=== PATIENT | female | born 1970 | race Caucasian/White ===

== ENCOUNTER 2017-05-23 13:12 | Emergency (ER) | payer OTHER ==
[~2017-05-23] VITALS: Ht 165.1 cm; Wt 79.4 kg
[~2017-05-23 13:12] MED LIST: AMLODIPINE10 M1 PO; HYDRALAZINE HYD10 M1 PO; HYDROCHLOROTHIA25 MG PO; LANTUS100 U/ML SC; LEVOTHYROXINE0.1 M2 PO
[2017-05-23 13:20] VITALS: Ht 165.1 cm; Wt 79.4 kg
[2017-05-23 15:27] VITALS: BP 150/68
== END 2017-05-23 15:27 | disposition home or self-care (01) ==
LOC: ED 13:12
DX: J02.9 Acute pharyngitis, unspecified (principal); I10 Essential (primary) hypertension; E11.9 Type 2 diabetes mellitus without complications

== ENCOUNTER 2017-05-26 18:02 | Emergency (ER) | payer OTHER ==
[~2017-05-26] VITALS: Ht 165.1 cm; Wt 81.6 kg
[2017-05-26 18:13] VITALS: Ht 165.1 cm; Wt 81.6 kg
[2017-05-26 20:08] LABS: microscopic required? NO
[2017-05-26 20:14] VITALS: BP 129/86
[2017-05-26 20:22] LABS: urine erythrocyte NEGATIVE (NEGATIVE)
== END 2017-05-26 20:14 | disposition home or self-care (01) ==
LOC: ED 18:02
PROVIDERS: Emergency Medicine
DX: N34.2 Other urethritis (principal); I10 Essential (primary) hypertension; E11.9 Type 2 diabetes mellitus without complications; E07.9 Disorder of thyroid, unspecified; Z98.890 Other specified postprocedural states
CPT/HCPCS: 87491; 87591

== ENCOUNTER 2017-10-04 15:49 | Emergency (ER) | payer OTHER ==
[~2017-10-04] VITALS: Ht 165.1 cm; Wt 81.2 kg
[2017-10-04 15:53] VITALS: Ht 165.1 cm; Wt 81.2 kg
[2017-10-04 17:48] VITALS: BP 143/82
== END 2017-10-04 17:42 | disposition home or self-care (01) ==
LOC: ED 15:49
DX: M54.12 Radiculopathy, cervical region (principal); I10 Essential (primary) hypertension; E11.9 Type 2 diabetes mellitus without complications

== ENCOUNTER 2018-11-21 11:09 | Emergency (ER) | payer OTHER ==
[~2018-11-21] VITALS: Ht 165.1 cm; Wt 81.6 kg
[2018-11-21 11:11] VITALS: BP 124/68; Ht 165.1 cm; Wt 81.6 kg
== END 2018-11-21 12:26 | disposition home or self-care (01) ==
LOC: ED 11:09
DX: S76.911A Strain of unspecified muscles, fascia and tendons at thigh level, right thigh, initial encounter (principal); I10 Essential (primary) hypertension; E11.9 Type 2 diabetes mellitus without complications; Z98.890 Other specified postprocedural states; W22.8XXA Striking against or struck by other objects, initial encounter; Y93.89 Activity, other specified; Y92.89 Other specified places as the place of occurrence of the external cause; Y99.8 Other external cause status
CPT/HCPCS: Q0092

== ENCOUNTER 2019-02-27 23:25 | Emergency (ER) | payer OTHER ==
[~2019-02-27] VITALS: Ht 165.1 cm; Wt 81.6 kg
[2019-02-27 23:29] VITALS: Ht 165.1 cm; Wt 81.6 kg
[2019-02-28 00:41] VITALS: BP 163/91
== END 2019-02-28 00:41 | disposition home or self-care (01) ==
LOC: ED 23:25
DX: S16.1XXA Strain of muscle, fascia and tendon at neck level, initial encounter (principal); S80.11XA Contusion of right lower leg, initial encounter; M25.511 Pain in right shoulder; I10 Essential (primary) hypertension; E11.9 Type 2 diabetes mellitus without complications; V43.52XA Car driver injured in collision with other type car in traffic accident, initial encounter; Y93.I9 Activity, other involving external motion; Y92.488 Other paved roadways as the place of occurrence of the external cause; Y99.8 Other external cause status

== ENCOUNTER 2019-07-05 09:26 | Inpatient (IN) | payer OTHER ==
[~2019-07-05] VITALS: Ht 165.1 cm; Wt 81.0 kg
[2019-07-05 09:39] VITALS: Ht 165.1 cm; Wt 81.0 kg
[2019-07-05 10:46] LABS: CALCIUM 9.9 mg/dL (8.5-10.1); CARBON DIOXIDE 32.2 mmol/L (21-32); CHLORIDE SERUM 100 mmol/L (98-107); CREATININE SERUM 0.9 mg/dL (0.6-1.0); GFR1 > 60 mL/min; GLUCOSE SERUM 221 mg/dL (74-106); POTASSIUM SERUM 3.2 mmol/L (3.5-5.1); SODIUM SERUM 143 mmol/L (136-145)
[2019-07-05 10:51] LABS: ALBUMIN 3.9 g/dL (3.4-5.0); ALKALINE PHOSPHATASE 93 U/L (46-116); ALT/SGPT 25 U/L (14-59); AMYLASE 66 U/L (25-115); AST/SGOT 20 U/L (15-37); LIPASE 125 IU/L (73-393)
[2019-07-05 10:52] LABS: TOTAL PROTEIN, SERUM 8.5 g/dL (6.4-8.2)
[2019-07-05 11:32] LABS: BASOPHIL % 0.2 % (0-2); PLATELET COUNT 366 x10^3mcL (130-400); RED CELL DISTRIBUTION WIDTH 16.3 % (11.5-14.5)
[2019-07-05] MEDS ORDERED: BASAGLAR K100 UNIT/1 SQ (13:43)
[2019-07-05] MEDS ORDERED: [UNRECOGNIZED DRUG - OTHER] SQ (13:44)
[2019-07-05] MEDS ORDERED: COZAAR50 M1 PO (13:45)
[2019-07-05] MEDS ORDERED: HYDROCHLOROTHIA25 MG PO (13:45)
[2019-07-05] MEDS ORDERED: HYDRALAZINE HCL10 MG PO (13:46)
[2019-07-05] MEDS ORDERED: LOMOTIL1 TAB PO (13:46)
[2019-07-05] MEDS ORDERED: NOR10 PO (13:47)
[2019-07-05] MEDS ORDERED: INVOKANA100 MG PO (13:47)
[2019-07-05] MEDS ORDERED: TIROSINT112 MCG PO (13:47)
[2019-07-05 14:42] VITALS: BP 161/97
[2019-07-05 16:10] LABS: T3 TOTAL 1.29 ng/mL
[2019-07-05 16:13] LABS: FREE T4 1.41 ng/dL (0.76-1.46); FREE THYROXINE INDEX 4.1 ug/dL (1.4-4.5); T4(THYROXINE) 13.3 ug/dL (4.7-13.3)
[2019-07-05 16:37] VITALS: BP 143/83
[2019-07-05 19:52] VITALS: BP 159/82
[2019-07-06 05:05] VITALS: BP 136/76
[2019-07-06 07:18] LABS: BASOPHIL % 0.3 % (0-2); PLATELET COUNT 304 x10^3mcL (130-400)
[2019-07-06 07:27] LABS: RED CELL DISTRIBUTION WIDTH 16.5 % (11.5-14.5)
[2019-07-06 07:29] LABS: CALCIUM 8.8 mg/dL (8.5-10.1); CARBON DIOXIDE 28.9 mmol/L (21-32); CHLORIDE SERUM 104 mmol/L (98-107); CREATININE SERUM 0.7 mg/dL (0.6-1.0); GFR1 > 60 mL/min; GLUCOSE SERUM 138 mg/dL (74-106); POTASSIUM SERUM 3.2 mmol/L (3.5-5.1); SODIUM SERUM 144 mmol/L (136-145)
[2019-07-06 08:15] VITALS: BP 146/75
[2019-07-06 12:10] VITALS: BP 128/77
[2019-07-06 16:45] VITALS: BP 114/73
[2019-07-06 17:27] VITALS: BP 151/90
[2019-07-06 20:32] VITALS: BP 152/88
[2019-07-07 05:07] VITALS: BP 143/84
[2019-07-07 07:06] LABS: ALKALINE PHOSPHATASE 76 U/L (46-116); ALT/SGPT 26 U/L (14-59); AST/SGOT 21 U/L (15-37); BILIRUBIN TOTAL 0.55 mg/dL (0.20-1.00); CALCIUM 8.7 mg/dL (8.5-10.1); CHLORIDE SERUM 102 mmol/L (98-107); CREATININE SERUM 0.6 mg/dL (0.6-1.0); GFR1 > 60 mL/min; GLUCOSE SERUM 155 mg/dL (74-106); POTASSIUM SERUM 3.4 mmol/L (3.5-5.1); SODIUM SERUM 140 mmol/L (136-145); TOTAL PROTEIN, SERUM 7.4 g/dL (6.4-8.2)
[2019-07-07 07:09] LABS: ALBUMIN 3.2 g/dL (3.4-5.0)
[2019-07-07 07:11] LABS: PLATELET COUNT 300 x10^3mcL (130-400); RED CELL DISTRIBUTION WIDTH 16.1 % (11.5-14.5)
[2019-07-07 07:12] LABS: BASOPHIL % 0.4 % (0-2)
[2019-07-07 08:50] VITALS: BP 143/87
[2019-07-07 14:34] VITALS: BP 151/79
[2019-07-07 17:32] VITALS: BP 151/79
[2019-07-07 20:33] VITALS: BP 149/82
[2019-07-08 05:31] VITALS: BP 161/81
[2019-07-08 07:30] LABS: BASOPHIL % 0.6 % (0-2); PLATELET COUNT 340 x10^3mcL (130-400)
[2019-07-08 07:37] LABS: RED CELL DISTRIBUTION WIDTH 15.3 % (11.5-14.5)
[2019-07-08 07:49] LABS: ALKALINE PHOSPHATASE 68 U/L (46-116); ALT/SGPT 27 U/L (14-59); AST/SGOT 20 U/L (15-37); BILIRUBIN TOTAL 0.2 mg/dL (0.20-1.00); CALCIUM 9.1 mg/dL (8.5-10.1); CARBON DIOXIDE 27.2 mmol/L (21-32); CHLORIDE SERUM 104 mmol/L (98-107); CREATININE SERUM 0.6 mg/dL (0.6-1.0); GFR1 > 60 mL/min; GLUCOSE SERUM 130 mg/dL (74-106); POTASSIUM SERUM 3.6 mmol/L (3.5-5.1); SODIUM SERUM 140 mmol/L (136-145); TOTAL PROTEIN, SERUM 7.4 g/dL (6.4-8.2)
[2019-07-08 07:57] LABS: ALBUMIN 3.2 g/dL (3.4-5.0)
[2019-07-08 08:01] VITALS: BP 151/78
[2019-07-08 08:03] VITALS: BP 107/61
[2019-07-08 12:29] VITALS: BP 155/83
== END 2019-07-08 15:23 | disposition home or self-care (01) | DRG 247 ==
LOC: ED 09:26 → MU 12:57
PROVIDERS: Emergency Medicine; ADMIT Hospitalist
DX: K56.600 Partial intestinal obstruction, unspecified as to cause (principal); E87.3 Alkalosis; K76.0 Fatty (change of) liver, not elsewhere classified; E11.65 Type 2 diabetes mellitus with hyperglycemia; I10 Essential (primary) hypertension; N28.89 Other specified disorders of kidney and ureter; E78.5 Hyperlipidemia, unspecified; D12.6 Benign neoplasm of colon, unspecified; E03.9 Hypothyroidism, unspecified; E66.3 Overweight; Z79.4 Long term (current) use of insulin; Z68.30 Body mass index [BMI] 30.0-30.9, adult; Z90.49 Acquired absence of other specified parts of digestive tract; Z83.3 Family history of diabetes mellitus; Z80.9 Family history of malignant neoplasm, unspecified
CPT/HCPCS: 82962; 84439; 90658; 90732; G0378; J1644; J1815; J3010; J3480; Q0092; Q9967